=== PATIENT | male | born 1965 | race Caucasian/White ===

== ENCOUNTER 2021-12-13 05:06 | Inpatient (IN) | payer OTHER ==
[~2021-12-13] VITALS: Ht 180.3 cm; Wt 94.8 kg
[2021-12-13 05:41] LABS: BASOPHIL 0.5 % (0-2); EOSINOPHIL 2.1 % (0-5); HCT 51.7 % (42.0-52.0); HGB 16.4 g/dl (13.2-18.0); LYMPHOCYTE 32.7 % (15-48); MCH 28.4 pg (25.0-31.0); MCHC 31.7 g/dL (32.0-36.0); MCV 89.6 fL (78.0-100.0); MONOCYTE 11.3 % (0-12); MPV 11.8 fL (6.0-9.5); NRBC 0; PLT 192 K/uL (150-400); RBC 5.77 M/uL (4.70-6.00); WBC 8.4 K/uL (4.0-10.5)
[2021-12-13 05:52] LABS: PROTHROMBIN TIME 12.6 SECONDS (11.8-13.4); PTT 25.4 SECONDS (24.4-34.7)
[2021-12-13 06:08] LABS: LACTIC ACID 1.5 mmol/L (0.4-1.9)
[2021-12-13 06:14] LABS: ALBUMIN 3.3 g/dL (3.4-5.0); BILIRUBIN - TOTAL 2.2 mg/dL (0.2-1.0); BUN/CREAT RATIO (CALC) 11.1 RATIO; CREATININE 1.17 mg/dL (0.67-1.17); FT4 (FREE T4) 1.5 ng/dL (0.76-1.46); GLOBULIN (CALCULATION) 3.7 g/dL; POTASSIUM 3.5 mmol/L (3.5-5.1)
[2021-12-13 06:50] LABS: CORONAVIRUS 2019 SARS-COV-2 NEGATIVE (NEGATIVE); INFLUENZA A NAA NEGATIVE (NEGATIVE)
[2021-12-13 14:38] LABS: POTASSIUM 3.4 mmol/L (3.5-5.1)
[2021-12-13] MEDS ORDERED: LIPITOR40 MG PO (15:47)
[2021-12-13] MEDS ORDERED: PRILOSEC20 MG PO (15:47)
[2021-12-13] MEDS ORDERED: PRINIVIL10 MG PO (15:47)
[2021-12-13] MEDS ORDERED: LOVAZA1 GM PO (15:47)
[2021-12-13] MEDS ORDERED: LANTUS **100 UNITS/ SC (15:47)
[2021-12-13] MEDS ORDERED: FLOMAX0.4 MG PO (15:48)
[2021-12-13] MEDS ORDERED: GLUCOTROL10 MG PO (15:48)
[2021-12-13] MEDS ORDERED: ZOCOR10 MG PO (15:48)
[2021-12-14 05:42] LABS: HCT 49.2 % (42.0-52.0); MCH 28.6 pg (25.0-31.0); MCHC 32.5 g/dL (32.0-36.0); RBC 5.59 M/uL (4.70-6.00); RDW 14.2 % (11.5-14.0); WBC 9.6 K/uL (4.0-10.5)
[2021-12-14 06:01] LABS: ALBUMIN 3.2 g/dL (3.4-5.0); BILIRUBIN - TOTAL 3.3 mg/dL (0.2-1.0); BUN/CREAT RATIO (CALC) 15.5 RATIO; CREATININE 1.42 mg/dL (0.67-1.17); GLOBULIN (CALCULATION) 3.2 g/dL; POTASSIUM 3.8 mmol/L (3.5-5.1); TOTAL PROTEIN 6.4 g/dL (6.4-8.2)
[2021-12-15 06:32] LABS: BASOPHIL 0.6 % (0-2); EOSINOPHIL 1.8 % (0-5); HCT 49.9 % (42.0-52.0); HGB 15.9 g/dl (13.2-18.0); LYMPHOCYTE 25.9 % (15-48); MCH 28.3 pg (25.0-31.0); MCHC 31.9 g/dL (32.0-36.0); MCV 88.8 fL (78.0-100.0); MONOCYTE 10.9 % (0-12); MPV 12.6 fL (6.0-9.5); NEUTROPHIL 60.3 % (41-80); NRBC 0; PLT 171 K/uL (150-400); RBC 5.62 M/uL (4.70-6.00); RDW 14.1 % (11.5-14.0); WBC 8.8 K/uL (4.0-10.5)
[2021-12-15 06:51] LABS: BUN/CREAT RATIO (CALC) 16.1 RATIO; CREATININE 1.12 mg/dL (0.67-1.17); POTASSIUM 4.4 mmol/L (3.5-5.1)
[2021-12-16 06:20] LABS: CREATININE 1.07 mg/dL (0.67-1.17); POTASSIUM 4.2 mmol/L (3.5-5.1)
[2021-12-17 06:05] LABS: BASOPHIL 0.7 % (0-2); EOSINOPHIL 2.8 % (0-5); HCT 50.8 % (42.0-52.0); HGB 16.2 g/dl (13.2-18.0); LYMPHOCYTE 19.8 % (15-48); MCH 28.2 pg (25.0-31.0); MCHC 31.9 g/dL (32.0-36.0); MCV 88.3 fL (78.0-100.0); MONOCYTE 14.6 % (0-12); NEUTROPHIL 61.8 % (41-80); NRBC 0; PLT 174 K/uL (150-400); RBC 5.75 M/uL (4.70-6.00); RDW 13.9 % (11.5-14.0); WBC 7.5 K/uL (4.0-10.5)
[2021-12-17 06:40] LABS: BUN/CREAT RATIO (CALC) 10.3 RATIO; CREATININE 1.36 mg/dL (0.67-1.17); MAGNESIUM 1.4 mg/dL (1.8-2.4); POTASSIUM 3.8 mmol/L (3.5-5.1)
== END 2021-12-17 11:47 | disposition other institution (70) | DRG 280 ==
LOC: FER 05:06 → FTCU 10:31
PROVIDERS: Family Medicine; Internal Medicine; Nurse Practitioner Acute Care; ADMIT Internal Medicine
DX: I11.0 Hypertensive heart disease with heart failure (principal); I50.21 Acute systolic (congestive) heart failure; I21.A1 Myocardial infarction type 2; J98.11 Atelectasis; N17.9 Acute kidney failure, unspecified; C77.1 Secondary and unspecified malignant neoplasm of intrathoracic lymph nodes; I47.2 Ventricular tachycardia; I48.91 Unspecified atrial fibrillation; T80.89XA Other complications following infusion, transfusion and therapeutic injection, initial encounter; Z20.822 Contact with and (suspected) exposure to COVID-19; E78.5 Hyperlipidemia, unspecified; I25.10 Atherosclerotic heart disease of native coronary artery without angina pectoris; E11.65 Type 2 diabetes mellitus with hyperglycemia; E83.42 Hypomagnesemia; R91.1 Solitary pulmonary nodule; Z96.652 Presence of left artificial knee joint; Z87.891 Personal history of nicotine dependence; Z79.899 Other long term (current) drug therapy
CPT/HCPCS: 36415; 36600; 71045; 71275; 80048; 80053; 82803; 82962; 83036; 83605; 83735; 83880; 84145; 84439; 84443; 84484; 85025; 85379; 85610; 85730; 87040; 93005; 94640; J0282; J1940; J2543; J3475; J7060; Q9967; U0002